=== PATIENT | male | born 2000 | race Two or more races ===

== ENCOUNTER 2020-11-17 16:47 | Emergency (ER) | payer OTHER ==
[2020-11-17 16:53] VITALS: BP 124/74
[2020-11-17] MEDS ORDERED: BUFFERED LIDOCAINE 10 ML SYRINGE SUBQ STA (17:16)
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
== END 2020-11-17 17:45 | disposition home or self-care (01) ==
LOC: ED 16:47
DX: S61.411A Laceration without foreign body of right hand, initial encounter (principal); W26.0XXA Contact with knife, initial encounter; Y92.89 Other specified places as the place of occurrence of the external cause; Y99.0 Civilian activity done for income or pay
CPT/HCPCS: 12001; 99281; 99282